=== PATIENT | female | born 1965 | race Two or more races ===

== ENCOUNTER 2025-08-17 08:18 | Day surgery (SDC) | payer MEDICAID ==
[2025-08-08 12:47] LABS: Hematocrit 41.1 % (36.0-46.0); Hemoglobin 14.0 g/dL (12.2-16.2); Mean Corpuscular Hemoglobin 28.5 pg (28.0-32.0); Mean Corpuscular Volume 83.7 fL (80.0-100.0); Nucleated Red Blood Cells % 0.1 %
[2025-08-08 12:53] LABS: Urine Protein, UAD Negative (Negative)
[2025-08-08 12:56] LABS: INR 0.99 (0.9-1.15); Partial Thromboplastin Time 29.3 SEC (24.5-34.5); Prothrombin Time 10.5 sec (9.3-11.8)
[2025-08-08 13:01] LABS: Alanine Aminotransferase 18 U/L (7-40); Albumin 4.3 g/dL (3.2-4.8); Alkaline Phosphatase 108 U/L (46-116); Anion Gap 11 (5-15); BUN/Creatinine Ratio 27.1 (10.0-20.0); Calcium 9.8 mg/dL (8.7-10.4); Chloride 100 mmol/L (98-107); Glucose 96 mg/dL (74-106); Sodium 143 mmol/L (136-145); Total Protein 7.6 g/dL (5.7-8.2)
[2025-08-08 13:02] LABS: Bilirubin, Total 0.5 mg/dL (0.2-1.0)
[2025-08-08 13:05] LABS: Blood Urea Nitrogen 36 mg/dL (9-23); Carbon Dioxide 32 mmol/L (20-31); Potassium 3.5 mmol/L (3.5-5.1)
[~2025-08-17] VITALS: Ht 170.2 cm; Wt 145.1 kg
[~2025-08-17 08:18] MED LIST: AMLO1TAB22 PO; HYDR25TA5 PO; PANT40TA2 PO
[2025-08-17] MEDS ORDERED: LIDOCAINE 2% (LOCAL ANESTH.) PF 5ml SDV ONE (09:47)
[2025-08-17] MEDS ORDERED: ONDANSETRON HCL 4 MG/2 ML VIAL ONE (09:47)
[2025-08-17] MEDS ORDERED: MIDAZOLAM HCL 2MG/2ML 2ml VIAL (1mg/ml) ONE (09:47)
[2025-08-17] MEDS ORDERED: GLYCOPYRROLATE 0.2 MG/ML 1ML VIAL ONE (09:47)
[2025-08-17] MEDS ORDERED: PROPOFOL 10 MG/ML 20 ML IV ONE (09:47)
[2025-08-17] MEDS ORDERED: fentaNYL CITRATE 100 MCG/2 ML VL ONE (09:47)
[2025-08-17 10:17] VITALS: TEMP 97.5; O2SAT 96
--- NOTE | 2025-08-17 10:17 | DVHHP2 ---
GI H&P Pre-Op Assessment Date: 08/17/25 Chief complaint: Epigastric pain HPI: per clinic note Past medical history: per clinic note Past surgical history: per clinic note Family history: per clinic note Physical exam: General: NAD, AAOX3 HEENT: PERRL, no scleral icterus, normal hearing, gums without lesions or b leeding, oropharynx clear without erythema or exudate. Neck: Supple without enlargement of the thyroid, or lymphadenopathy. Chest: Normal size and shape, no tenderness, lung oro clear to auscultation and percussion, nonlabored breathing. Heart: RRR, no murmur Abdomen: non-distended, no tenderness to palpation, +BS, no hepatosplenomegaly Extremities: no edema Neurological: CN II-XII intact, sensation intact in all extremities, 5+ strength in all extremities Skin: No rashes, No jaundice Assessment: - GERD and epigastric pain Plan: - EGD - Risks (bleeding, infection, perforation, reaction to sedation medications and cardiopulmonary arrest) and benefit of the procedure were explained to patient. Patient agrees to undergo the procedure. ZEUS RODRIGUEZ MD Aug 17, 2025 10:17
--- NOTE | 2025-08-17 10:19 | DVHDS2 ---
Physician Discharge Progress N Final Diagnosis: Duodenal diverticulum, moderate gastritis, hiatal hernia Operations or Procedures: Operations or Procedures EGD with cold biopsies Condition on Discharge: Good Disposition: Home Discharge Instructions: Diet: Regular Activity: No Restrictions, As Tolerated Medications: Resume with previous home medications Follow Up Care: Discharge Statement: "Patient was advised to return to the ER or call 911 if any headaches, dizziness, shortness of breath, chest pain, abdominal pain, bleeding, fevers, or worsening of medical condition. Patient was counseled about treatment plan, medications, possible side effects, patientverbalized understanding. All questions were answered to the best of my ability. This discharge took greater then 30 minutes in planning, reviewing documentation, counseling the patient, and discussing with other team members." ZEUS RODRIGUEZ MD Aug 17, 2025 10:19
--- NOTE | 2025-08-17 10:19 | DVHOP2 ---
Operative Report DATE OF OPERATION: 08/17/25 PROCEDURE: Upper Endoscopy. PREOPERATIVE INDICATION: The patient is a 60 -year-old female undergoing endoscopy for GERD and epigastric pain. POSTOPERATIVE DIAGNOSES: 1. A diverticulum in the duodenal bulb. 2. Moderate gastritis 3. Hiatal hernia from 38-40 cm PROCEDURE PERFORMED BY: Akash Decker SCOPE: Olympus videoendoscope. ASA CLASS: 3 PREOPERATIVE MEDICATIONS: MAC with Dr Ta PROCEDURE IN DETAIL: After obtaining an informed consent, the patient was placed on her back. The patient was then sedated by Dr. Ta. A bite block was placed between her teeth. The endoscope was then passed through the oropharynx, into the esophagus, and through the stomach and pylorus up to the second and third part of the duodenum. There was a diverticulum in the duodenal bulb. There was moderate gastritis. Gastric biopsies were obtained using cold forceps. There was hiatal hernia from 38-40 cm. The GE junction was normal in appearance at 38 cm. The esophagus was normal in appearance. The endoscope was then withdrawn. The patient tolerated the procedure well without difficulty. COMPLICATIONS : None SPECIMENS: Gastric biopsies DISPOSITION: D/C to home PLAN: 1. Await for biopsy result 2. Continue with Protonix AKASH DECKER MD Aug 17, 2025 10:19
[2025-08-17 10:40] VITALS: BP 143/50; PULSE 75; RESP 14; O2SAT 97
== END 2025-08-17 10:50 | disposition home or self-care (01) ==
LOC: GI 08:18
PROVIDERS: ATTEND Internal Medicine Gastroenterology
DX: R10.13 Epigastric pain (principal); K29.50 Unspecified chronic gastritis without bleeding; K21.9 Gastro-esophageal reflux disease without esophagitis; K57.30 Diverticulosis of large intestine without perforation or abscess without bleeding; K44.9 Diaphragmatic hernia without obstruction or gangrene; R10.9 Unspecified abdominal pain; I10 Essential (primary) hypertension; Z79.899 Other long term (current) drug therapy; Z98.890 Other specified postprocedural states; Z88.0 Allergy status to penicillin
CPT/HCPCS: 36415; 43239; 80053; 81001; 85025; 85610; 85730; 88305; 88313; 88342; J2003; J2250; J2405; J2704; J3010; J7030